=== PATIENT | female | born 1990 | race Two or more races ===

== ENCOUNTER 2021-10-11 20:45 | Emergency (ER) | payer SELFPAY ==
[~2021-10-11] VITALS: Ht 157.5 cm; Wt 60.0 kg
[2021-10-11] MEDS ORDERED: HALOPERIDOL LACTATE 5MG/ML VIAL IM ONE (21:45)
[2021-10-11] MEDS ORDERED: MIDAZOLAM HCL 2 MG/2 ML VIAL IM ONE (21:45)
[2021-10-11 23:00] LABS: BASOPHILS % 0.4 % (0.0-2.0); EOSINOPHILS % 0.6 % (0.0-5.0); HEMATOCRIT. 37.2 % (36.0-48.0); HEMOGLOBIN. 11.9 g/dL (12.0-16.0); LYMPHOCYTES % 15.8 % (20.0-50.0); MEAN CORPUSCULAR HEMOGLOBIN 25.4 pg (28.0-32.0); MEAN CORPUSCULAR VOLUME 79.6 fL (81.0-99.0); MEAN PLATELET VOLUME 8.7 fl (7.4-10.4); MONOCYTES % 8.4 % (2.0-8.0); NEUTROPHILS % 74.8 % (40.0-76.0); PLATELET 289 x1000/uL (130-400); RED BLOOD CELL COUNT 4.67 mill/uL (4.2-5.4); RED CELL DISTRIBUTION WIDTH 14.3 % (11.6-14.6)
[2021-10-11 23:05] LABS: CHLORIDE 104 mEq/L (98-107)
[2021-10-11 23:11] LABS: ETHANOL BLOOD < 10 mg/dL
[2021-10-11 23:20] LABS: HCG SCREEN NEGATIVE
[2021-10-11 23:26] LABS: CREATINE KINASE 1815 IU/L (26-192)
[2021-10-12] MEDS ORDERED: MIDAZOLAM HCL 2 MG/2 ML VIAL IV ONE ×2 (01:45)
[2021-10-12] MEDS ORDERED: SODIUM CHLORIDE 0.9% 1,000 ML IV ONE (03:30)
[2021-10-12 04:35] LABS: CLARITY URINE CLEAR (CLEAR); COLOR URINE YELLOW (YELLOW); KETONES URINE 1+ (NEGATIVE); LEUKOCYTE ESTERASE URINE NEGATIVE (NEGATIVE); NITRITE URINE NEGATIVE (NEGATIVE); OCCULT BLOOD URINE NEGATIVE (NEGATIVE); PH URINE 6.5 (4.5-8.0); PROTEIN URINE NEGATIVE (NEGATIVE); SPECIFIC GRAVITY URINE 1.015 (1.005-1.030); UROBILINOGEN URINE 0.2 E.U./dL (0.2-1.0)
[2021-10-12 05:27] LABS: *BARBITURATES SCREEN URINE NEGATIVE (NEGATIVE); *COCAINE SCREEN URINE NEGATIVE (NEGATIVE); CANNABINOID URINE SCREEN NEGATIVE (NEGATIVE); METHADONE URINE SCREEN NEGATIVE (NEGATIVE); OPIATES URINE SCREEN NEGATIVE (NEGATIVE); PHENCYCLIDINE URINE SCREEN NEGATIVE (NEGATIVE)
[2021-10-12 05:51] LABS: *AMPHETAMINES SCREEN URINE PRESUMTIVE POSITIVE (NEGATIVE)
[2021-10-12 05:52] LABS: *BENZODIAZEPINES SCREEN URINE PRESUMTIVE POSITIVE (NEGATIVE)
[2021-10-12 12:44] VITALS: BP 112/64
== END 2021-10-12 12:45 | disposition home or self-care (01) ==
LOC: EDBD 20:45 → ER 20:45
DX: F15.129 Other stimulant abuse with intoxication, unspecified (principal); S00.81XA Abrasion of other part of head, initial encounter; R45.1 Restlessness and agitation; F16.10 Hallucinogen abuse, uncomplicated; X58.XXXA Exposure to other specified factors, initial encounter; Y93.89 Activity, other specified; Y92.89 Other specified places as the place of occurrence of the external cause
CPT/HCPCS: 36415; 70450; 71045; 80053; 80305; 80307; 80320; 80329; 81003; 82550; 84443; 84703; 85025; 93005; 96372; 96374; 96376; 99285; J1630; J2250; J7030; Z7610; G0480